=== PATIENT | male | born 1995 | race Caucasian/White ===

== ENCOUNTER 2021-09-02 15:09 | Inpatient (IN) | payer OTHER, SELFPAY ==
[2021-09-02 16:49] VITALS: BP 141/86; PULSE 97; RESP 14; TEMP 36.7; O2SAT 98
[2021-09-02 16:50] VITALS: BMI 23.3
[2021-09-02 17:23] VITALS: BP 137/84; PULSE 94; RESP 18; TEMP 37.1; O2SAT 99
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
[2021-09-02] MEDS: traZODone HCL 50 MG TABLET PO (21:31)
[2021-09-02] MEDS: LORazepam 1 MG TABLET PO (21:31)
[2021-09-03 06:00] VITALS: BP 126/81; PULSE 79; RESP 16; TEMP 36.5; O2SAT 98
[2021-09-03 07:00] VITALS: BMI 23.5
--- NOTE | 2021-09-03 08:57 | HO.PM.IMCN ---
History of Present Illness Data of Consult Service Date: 09/03/21 Primary Care Provider: Unknown Physician HPI Reason for consult: Routine MEdical H&P 26 yo M who reports no PMH. He is admitted to . Medical consult requested for routine medical H&P per protocol. Patient is seen and examined in the exam room. They deny any medical complaints at this time. He reoprts a FH of Gomez's (mother + grandmother). Reports he is in the process of being tested for the same. He denies any active neurological symptoms. PMH Denies PSH Denies FH Fowler's in mother + grandmother SH Denies tobacco or alcohol use; reports marijuana use Review of Systems Review of Systems: negative except HPI PMFSH Social History Household Members: Significant Other and Children Housing: Apartment Do you presently have visiting nurse or other home services: No Patient Tobacco Use Status: Former Tobacco user Quit Date: 08/24/21 Tobacco use type: Cigarette Years Smoked: 3 Smoked in Last 30 Days: Yes e-Cigarette/Vaping Use: Former Use Patient Interested in Nicotine Replacement: No Patient Given Instructions on How to Stop Smoking: Yes Date Education Initiated: 09/02/21 Second Hand Smoke Exposure: No Use of substances other than those prescribed or required for medical reasons: Yes Substance Use Type: Marijuana Substance Use Frequency: Chronic Longstanding Last Used Substance: Weeks (ago) Last Used Substance Other:: Marijuana Currently Displaying Signs/Symptoms of Drug Intoxication Withdrawal: No Any prior treatment program specific to substance use: No Have you been hit, kicked, punched, or otherwise hurt by someone within the past year? If so, by whom?: No Do you feel safe in your current relationship?: Yes Is there a partner from a previous relationship who is making you feel unsafe now?: No Are you made to feel afraid or neglected: No Advance Directives: No Advance Directives Information Provided: No Do you have thoughts of harming others: None Do you have a plan to hurt others: No Plan Recently lost weight without trying: No How much weight loss: Not applicable Eating poorly because of decreased appetite: No Nutrition screen score: 0 Nutrition Risks: No Nutritional Risk Poor oral hygiene: No Meds Allergies Allergy/AdvReac Type Severity Reaction Status Date / Time No Known Allergies Allergy Verified 09/02/21 15:17 Active Medications: Current Medications Acetaminophen (Acetaminophen 325 Mg Tablet) 650 mg PO Q6H PRN PRN Reason: Headache/Pain Mild Scale (1-3) Al Hydroxide/Mg Hydroxide (Magnesium Hydrox/Alum Hydrox 30 Ml Oral.Susp) 30 ml PO Q6H PRN PRN Reason: Heartburn/Nausea Hydroxyzine HCl (Hydroxyzine Hcl 25 Mg Tablet) 25 mg PO BEDTIME PRN PRN Reason: Anxiety Lorazepam (Lorazepam 1 Mg Tablet) 1 mg PO BID PRN PRN Reason: Anxiety Last Admin: 09/02/21 21:31 Dose: 1 mg Documented by: Magnesium Hydroxide (Milk Of Magnesia 30 Ml Oral.Susp) 30 ml PO DAILY PRN PRN Reason: Constipation Trazodone HCl (Trazodone Hcl 50 Mg Tablet) 50 mg PO BEDTIME PRN PRN Reason: Insomnia Last Admin: 09/02/21 21:31 Dose: 50 mg Documented by: Home Medications Medication Instructions Recorded Confirmed Last Taken Type lorazepam 1 mg PO BID PRN 09/02/21 09/02/21 09/01/21 20:20 History Physical Exam Vital Signs and Narrative: Vital Signs: Last Vital Signs Temp 97.7 F 09/03/21 06:00 Pulse 79 09/03/21 06:00 Resp 16 09/03/21 06:00 BP 126/81 09/03/21 06:00 Pulse Ox 98 09/03/21 06:00 BMI result Body Mass Index 23.3 Const: Other: General - no acute distress, appears comfortable Cardiovascular - regular rate and rhythm, S1-S2 Lungs - normal respiratory effort, clear to auscultation bilaterally, no wheezing Abdomen - soft, nontender, no rebound or guarding Extremities - no edema bilaterally Neuro - awake and alert, no focal deficits; cn 2-12 intact bilaterally Assessment and Plan (1) Routine medical exam: Status: Acute Plan 26 yo M with no PMH, admitted to . Medical consultation sought for routine medical H&P. Patient has no active nor chronic medical issues. Patient has been counseled on age appropriate health maintenance as an outpatient. Continue care per primary team. Will sign off. Please re-consult if any issues arise.
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
[2021-09-03 20:57] VITALS: BP 137/91; PULSE 70; RESP 18; TEMP 36.9; O2SAT 100
[2021-09-03] MEDS: traZODone HCL 50 MG TABLET PO (21:00)
[2021-09-03] MEDS: cloNIDine HCL 0.1 MG TABLET PO (21:00)
[2021-09-04 06:35] VITALS: BP 119/68; PULSE 60; RESP 15; TEMP 36.1; O2SAT 100
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
[2021-09-04 17:46] VITALS: BP 135/83; PULSE 70; RESP 18; TEMP 36.6; O2SAT 98
[2021-09-04] MEDS: traZODone HCL 50 MG TABLET PO ×2 (21:36→23:08)
[2021-09-05 06:00] VITALS: BP 127/74; PULSE 70; TEMP 36.7; O2SAT 99
[2021-09-05 18:00] VITALS: BP 147/85; PULSE 78; RESP 20; TEMP 36.9; O2SAT 98
[2021-09-05] MEDS: hydrOXYzine HCL 25 MG TABLET PO (21:20)
[2021-09-05] MEDS: traZODone HCL 50 MG TABLET PO (21:21)
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
[2021-09-06 08:30] VITALS: BP 134/79; PULSE 82; TEMP 36.7
--- NOTE | 2021-09-06 19:15 | HO.PSYCHPN ---
Subjective Subjective Date of Service: 09/06/21 Reason For Visit: Acute psychosis Subjective Notes: Alberto Warning and Conditional Voluntary Healthcare Proxy: No Guardianship: No Medical Problems Affecting Mental Status: No Interim History: Patient seen and discussed with team. Per staff services manager, pt is brighter. Patient evaluated today and upon interview he reports his mood is really good. Talks about cars, his children. Says he is doing good. Sleep is ?good.? Re-trialed clonidine last night and he did not have SE of nausea. No quesitons or concerns. Does not want scheduled medication. In the milieu, patient is safe and appropriate in behavior. Denies SI/SIB/HI upon inquiry. Denies irritability or assaultive ideation. Says he feels safe. Medication Compliance: Yes Side effects from medications: No Attending Groups: Yes Review of Systems Acute medical concerns: No Medical Review of Systems: unchanged Mental Status Exam Mental Status Exam Narrative: Pt is alert and oriented; behavior is cooperative and calm; patient is not in distress; dressed in casual attire with adequate hygiene; mood is described as really good and affect congruent; eye contact appropriate; Speech is normal rate, volume and prosody and not pressured; no psychomotor agitation/retardation present; thought process is organized and goal directed; Thought content is on tx; otherwise pertinent to relevant topics and without any delusional content, paranoid ideations or grandiosity; denies any SI/HI. There is no evidence of perceptual disturbance. ?Patients insight and judgment appear intact. Diagnostics Vital Signs (24Hr): Vital Signs - 24 hr 09/06/21 08:30 09/06/21 22:00 Temperature 98.1 F 98.2 F Pulse Rate 82 79 Blood Pressure 134/79 158/99 H BMI result Body Mass Index 23.5 Medications Medications Current Medications Acetaminophen (Acetaminophen 325 Mg Tablet) 650 mg PO Q6H PRN PRN Reason: Headache/Pain Mild Scale (1-3) Al Hydroxide/Mg Hydroxide (Magnesium Hydrox/Alum Hydrox 30 Ml Oral.Susp) 30 ml PO Q6H PRN PRN Reason: Heartburn/Nausea Clonidine HCl (Clonidine Hcl 0.1 Mg Tablet) 0.1 mg PO Q4H PRN; Protocol PRN Reason: anxiety Last Admin: 09/03/21 21:00 Dose: 0.1 mg Documented by: Hydroxyzine HCl (Hydroxyzine Hcl 25 Mg Tablet) 25 mg PO BEDTIME PRN PRN Reason: Anxiety Last Admin: 09/06/21 21:59 Dose: 25 mg Documented by: Magnesium Hydroxide (Milk Of Magnesia 30 Ml Oral.Susp) 30 ml PO DAILY PRN PRN Reason: Constipation Trazodone HCl (Trazodone Hcl 50 Mg Tablet) 50 mg PO BEDTIME PRN PRN Reason: Insomnia Last Admin: 09/06/21 21:59 Dose: 50 mg Documented by: Allergies Allergies Allergy/AdvReac Type Severity Reaction Status Date / Time No Known Allergies Allergy Verified 09/02/21 15:17 Assessment & Plan Assessment & Plan (1) MDD (major depressive disorder), recurrent episode, moderate: Status: Acute Code(s): F33.1 - Major depressive disorder, recurrent, moderate (2) Chronic post-traumatic stress disorder (PTSD): Status: Acute Code(s): F43.12 - Post-traumatic stress disorder, chronic (3) Cannabis abuse: Status: Acute Code(s): F12.10 - Cannabis abuse, uncomplicated Plan Patient is a 26-year-old male with history of PTSD, depression and anxiety, also with her ready to her risk for [place]'s disease, who presents for is overwhelming anxiety and suicidal gesture in face of multiple psychosocial stressors, including the recent anniversary of his beloved mother's . Admitted for stabilization and medication management -patient reports that his superficial self-harm was more an expression of frustration and anger and not a suicide attempt. He says that this incident and he is now feeling calm and stable. He denies any current SI though does say that the past month and life stressors do bring up passive SI; however he says he does not want to and will not leave his child and family without him -history of severe childhood trauma and continued chronic struggles with high expressed emotion -patient not on medications but is open to considering; he agrees that cannabis is problematic and wants to cut down -Luckily patient reports he has good relationship with girlfriend -rule out bipolar disorder; borderline traits present. Plan: CV Q 15 minute checks Will start on clonidine p.r.n. for anxiety and mild agitation Will start on trazodone p.r.n. for insomnia Patient does not remember past medication trials; will try to get this information and consider medications to address depression anxiety, PTSD I spent minutes with the patient and/or on the patient floor today, greater than?50% of which was spent counseling/coordinating care. Reason for contiued inpatient stay Substantial Risk for: med/psych decompensation
[2021-09-06] MEDS: hydrOXYzine HCL 25 MG TABLET PO (21:59)
[2021-09-06] MEDS: traZODone HCL 50 MG TABLET PO (21:59)
[2021-09-06 22:00] VITALS: BP 158/99; PULSE 79; TEMP 36.8
[2021-09-07 06:38] VITALS: BP 121/76; PULSE 67; RESP 16; TEMP 36.3; O2SAT 98
[2021-09-07] MEDS: cloNIDine HCL 0.1 MG TABLET PO ×2 (08:11→15:02)
[2021-09-07] MEDS: hydrOXYzine HCL 25 MG TABLET PO (15:02)
--- NOTE | 2021-09-07 17:13 | P.PNPSI_ITS ---
Subjective Subjective Date of Service: 09/07/21 Reason For Visit: Acute psychosis Subjective Notes: Alberto Warning and Conditional Voluntary Healthcare Proxy: No Guardianship: No Medical Problems Affecting Mental Status: No Interim History: Patient seen and discussed with team. Pt punched the shower wall today. Patient evaluated today and upon interview he reports he feels depressed, had an argument with his daughter's mom, who he was living with. Pt says she lied to him, Im gonna end up killing myself and says she takes away all my liu in everything. Hx of codependency, says they were together 08/11 for 3 years.?Pt reports he has difficulty focusing, always thought I had ADHD, endorses impulsive bx, forgetfulness, says he wants to do everything at once, always fidgeting.?Pt says he wants a medication to help with impulsivity, depression, and anger. Says when he is angry, he feels like if I was the hulk, I would have destroyed this whole universe, feels trapped in myself. ? Pt currently denies SI/SIB/HI upon inquiry. Denies irritability or assaultive ideation. Says he feels safe on the unit. Attending Groups: Yes Review of Systems Acute medical concerns: No Medical Review of Systems: unchanged Mental Status Exam Mental Status Exam Narrative: Pt is alert and oriented; behavior is cooperative and calm; patient is not in distress; dressed in casual attire with adequate hygiene; mood is described as depressed and affect is irritable; eye contact appropriate; Speech is normal rate, volume and prosody and not pressured; no psychomotor agitation/retardation present; thought process is organized and goal directed; Thought content is ruminative on argument with his gf; otherwise pertinent to relevant topics and without any delusional content, paranoid ideations or grandiosity; denies any SI/HI. There is no evidence of perceptual disturbance. ?Patients insight and judgment appear intact. Diagnostics Vital Signs (24Hr): Vital Signs - 24 hr 09/06/21 22:00 09/07/21 06:38 Temperature 98.2 F 97.4 F Pulse Rate 79 67 Respiratory Rate 16 Blood Pressure 158/99 H 121/76 Pulse Oximetry 98 BMI result Body Mass Index 23.5 Medications Medications Current Medications Acetaminophen (Acetaminophen 325 Mg Tablet) 650 mg PO Q6H PRN PRN Reason: Headache/Pain Mild Scale (1-3) Al Hydroxide/Mg Hydroxide (Magnesium Hydrox/Alum Hydrox 30 Ml Oral.Susp) 30 ml PO Q6H PRN PRN Reason: Heartburn/Nausea Clonidine HCl (Clonidine Hcl 0.1 Mg Tablet) 0.1 mg PO Q4H PRN; Protocol PRN Reason: anxiety Last Admin: 09/07/21 15:02 Dose: 0.1 mg Documented by: Hydroxyzine HCl (Hydroxyzine Hcl 25 Mg Tablet) 25 mg PO BEDTIME PRN PRN Reason: Anxiety Last Admin: 09/07/21 15:02 Dose: 25 mg Documented by: Magnesium Hydroxide (Milk Of Magnesia 30 Ml Oral.Susp) 30 ml PO DAILY PRN PRN Reason: Constipation Nicotine Polacrilex (Nicotine Polacrilex 2 Mg Gum) 4 mg BUCCAL Q2H ESTELA Trazodone HCl (Trazodone Hcl 50 Mg Tablet) 50 mg PO BEDTIME PRN PRN Reason: Insomnia Last Admin: 09/06/21 21:59 Dose: 50 mg Documented by: Allergies Allergies Allergy/AdvReac Type Severity Reaction Status Date / Time No Known Allergies Allergy Verified 09/02/21 15:17 Assessment & Plan Assessment & Plan (1) MDD (major depressive disorder), recurrent episode, moderate: Status: Acute Code(s): F33.1 - Major depressive disorder, recurrent, moderate (2) Chronic post-traumatic stress disorder (PTSD): Status: Acute Code(s): F43.12 - Post-traumatic stress disorder, chronic (3) Cannabis abuse: Status: Acute Code(s): F12.10 - Cannabis abuse, uncomplicated Plan Patient is a 26-year-old male with history of PTSD, depression and anxiety, also with her ready to her risk for [place]'s disease, who presents for is overwhelming anxiety and suicidal gesture in face of multiple psychosocial stressors, including the recent anniversary of his beloved mother's . Admitted for stabilization and medication management -patient reports that his superficial self-harm was more an expression of frustration and anger and not a suicide attempt. He says that this incident and he is now feeling calm and stable. He denies any current SI though does say that the past month and life stressors do bring up passive SI; however he says he does not want to and will not leave his child and family without him -history of severe childhood trauma and continued chronic struggles with high expressed emotion -patient not on medications but is open to considering; he agrees that cannabis is problematic and wants to cut down -rule out bipolar disorder; borderline traits present. Plan: CV Q 15 minute checks Will start on clonidine p.r.n. for anxiety and mild agitation Will start on trazodone p.r.n. for insomnia Patient does not remember past medication trials; will try to get this information and consider medications to address depression anxiety, PTSD Will start wellbutrin XL 150 mg QAM for depression, as this may also help with impulsive bx. Will start seroquel 50 mg QHS for mood lability. I spent minutes with the patient and/or on the patient floor today, greater than?50% of which was spent counseling/coordinating care. Patient educated on: medication risk/benefits Reason for contiued inpatient stay Substantial Risk for: med/psych decompensation
[2021-09-07] MEDS: Nicotine Polacrilex 2 MG GUM 4 MG BUCCAL (17:47)
[2021-09-07 18:00] VITALS: BP 136/82; PULSE 82; RESP 18; TEMP 36.4
[2021-09-07] MEDS: QUEtiapine Fumarate 50 MG TABLET PO (21:40)
[2021-09-07] MEDS: traZODone HCL 50 MG TABLET PO (23:50)
[2021-09-08 06:00] VITALS: BP 131/82; PULSE 76; RESP 18; TEMP 36.7; O2SAT 98
[2021-09-08] MEDS: buPROPion HCl XL 150 MG TAB.ER.24H PO (08:51)
[2021-09-08] MEDS: Nicotine Polacrilex 2 MG GUM 4 MG BUCCAL ×3 (10:34→19:24)
[2021-09-08] MEDS: cloNIDine HCL 0.1 MG TABLET PO ×2 (10:36→19:17)
--- NOTE | 2021-09-08 17:43 | HO.PSYCHPN ---
Subjective Subjective Date of Service: 09/08/21 Reason For Visit: Acute psychosis Subjective Notes: Alberto Warning and Conditional Voluntary Healthcare Proxy: No Guardianship: No Medical Problems Affecting Mental Status: No Interim History: Patient seen and discussed with team. Patient evaluated today and upon interview he says that a pt on the unit had a self harm gesture and this was triggering for him. He is also arguing with his daughter's mom, against punched the wall and door, denies pain, declined xray. Pt is worried his daughter's mom wont let him return home and says If she?s not letting me go back she?s fucking with someone else, that?s how I look at it. Pt asked to talk to T/W later in the day after talking to his daughter's mom, who broke it to him that she did not want him to return home due to DCF involvment, per pt I knew it was gonna happen. Says he didn?t feel anything on Seroquel 50 mg and asks for 200 mg. Says he feels safe. Medication Compliance: Yes Side effects from medications: No Attending Groups: Yes Review of Systems Acute medical concerns: No Medical Review of Systems: unchanged Mental Status Exam Mental Status Exam Narrative: Pt is alert and oriented; behavior is cooperative and calm; patient is not in distress; dressed in casual attire with adequate hygiene; mood is described as depressed and affect is irritable; eye contact appropriate; Speech is normal rate, volume and prosody and not pressured; no psychomotor agitation/retardation present; thought process is organized and goal directed; Thought content is ruminative on argument with his gf; otherwise pertinent to relevant topics and without any delusional content, paranoid ideations or grandiosity; denies any SI/HI. There is no evidence of perceptual disturbance. ?Patients insight and judgment appear intact. Diagnostics Vital Signs (24Hr): Vital Signs - 24 hr 09/08/21 06:00 09/08/21 19:10 Temperature 98.0 F 98.9 F Pulse Rate 76 92 Respiratory Rate 18 Blood Pressure 131/82 152/83 H Pulse Oximetry 98 98 BMI result Body Mass Index 23.5 Medications Medications Current Medications Acetaminophen (Acetaminophen 325 Mg Tablet) 650 mg PO Q6H PRN PRN Reason: Headache/Pain Mild Scale (1-3) Al Hydroxide/Mg Hydroxide (Magnesium Hydrox/Alum Hydrox 30 Ml Oral.Susp) 30 ml PO Q6H PRN PRN Reason: Heartburn/Nausea Bupropion HCl (Bupropion Hcl Xl 150 Mg Tab.Er.24h) 150 mg PO DAILY [facility] Last Admin: 09/08/21 08:51 Dose: 150 mg Documented by: Clonidine HCl (Clonidine Hcl 0.1 Mg Tablet) 0.1 mg PO Q4H PRN; Protocol PRN Reason: anxiety Last Admin: 09/08/21 19:17 Dose: 0.1 mg Documented by: Hydroxyzine HCl (Hydroxyzine Hcl 25 Mg Tablet) 25 mg PO BEDTIME PRN PRN Reason: Anxiety Last Admin: 09/07/21 15:02 Dose: 25 mg Documented by: Magnesium Hydroxide (Milk Of Magnesia 30 Ml Oral.Susp) 30 ml PO DAILY PRN PRN Reason: Constipation Nicotine Polacrilex (Nicotine Polacrilex 2 Mg Gum) 4 mg BUCCAL Q2H PRN PRN Reason: Nicotine Cravings Last Admin: 09/08/21 19:24 Dose: 4 mg Documented by: Quetiapine Fumarate (Quetiapine Fumarate 200 Mg Tablet) 200 mg PO BEDTIME ESTELA Last Admin: 09/08/21 21:42 Dose: 200 mg Documented by: Quetiapine Fumarate (Quetiapine Fumarate 50 Mg Tablet) 50 mg PO Q6H PRN PRN Reason: anxiety, agitation Last Admin: 09/08/21 19:35 Dose: 50 mg Documented by: Trazodone HCl (Trazodone Hcl 50 Mg Tablet) 50 mg PO BEDTIME PRN PRN Reason: Insomnia Last Admin: 09/07/21 23:50 Dose: 50 mg Documented by: Allergies Allergies Allergy/AdvReac Type Severity Reaction Status Date / Time No Known Allergies Allergy Verified 09/02/21 15:17 Assessment & Plan Assessment & Plan (1) MDD (major depressive disorder), recurrent episode, moderate: Status: Acute Code(s): F33.1 - Major depressive disorder, recurrent, moderate (2) Chronic post-traumatic stress disorder (PTSD): Status: Acute Code(s): F43.12 - Post-traumatic stress disorder, chronic (3) Cannabis abuse: Status: Acute Code(s): F12.10 - Cannabis abuse, uncomplicated Plan Patient is a 26-year-old male with history of PTSD, depression and anxiety, also with her ready to her risk for [place]'s disease, who presents for is overwhelming anxiety and suicidal gesture in face of multiple psychosocial stressors, including the recent anniversary of his beloved mother's . Admitted for stabilization and medication management -patient reports that his superficial self-harm was more an expression of frustration and anger and not a suicide attempt. He says that this incident and he is now feeling calm and stable. He denies any current SI though does say that the past month and life stressors do bring up passive SI; however he says he does not want to and will not leave his child and family without him -history of severe childhood trauma and continued chronic struggles with high expressed emotion -patient not on medications but is open to considering; he agrees that cannabis is problematic and wants to cut down -Luckily patient reports he has good relationship with girlfriend -rule out bipolar disorder; borderline traits present. Plan: CV Q 15 minute checks Will start on clonidine p.r.n. for anxiety and mild agitation Will start on trazodone p.r.n. for insomnia Patient does not remember past medication trials; will try to get this information and consider medications to address depression anxiety, PTSD Will start wellbutrin XL 150 mg QAM for depression, as this may also help with impulsive bx. Will start seroquel 50 mg QHS for mood lability. Will increase seroquel to 200 mg QHS for mood lability and seroquel 50 mg Q6H PRN for agitation. I spent minutes with the patient and/or on the patient floor today, greater than?50% of which was spent counseling/coordinating care. Patient educated on: medication risk/benefits Reason for contiued inpatient stay Substantial Risk for: med/psych decompensation
[2021-09-08 19:10] VITALS: BP 152/83; PULSE 92; TEMP 37.2; O2SAT 98
[2021-09-08] MEDS: QUEtiapine Fumarate 50 MG TABLET PO (19:35)
[2021-09-08] MEDS: QUEtiapine Fumarate 200 MG TABLET PO (21:42)
--- NOTE | 2021-09-08 23:13 | PC.NURSE ---
Patient on a lengthy phone call with the mother of his child. Patient was loud and angry as he was speaking into the phone. Patient had said earlier that he thought the woman would not bring his daughter for a visit and that he was upset about the information.
[2021-09-09 06:00] VITALS: BP 128/78; PULSE 82; RESP 18; TEMP 36.6; O2SAT 99
[2021-09-09] MEDS: buPROPion HCl XL 150 MG TAB.ER.24H PO (08:22)
[2021-09-09] MEDS: cloNIDine HCL 0.1 MG TABLET PO (14:19)
[2021-09-09] MEDS: Nicotine Polacrilex 2 MG GUM 4 MG BUCCAL ×2 (14:19→21:03)
--- NOTE | 2021-09-09 17:12 | HO.PSYCHPN ---
Subjective Subjective Date of Service: 09/09/21 Reason For Visit: Acute psychosis Interim History: Patient said that he is feeling much better. Mood is good and denies any SI. He says on medications he is feeling more stable, more calm; denies any med side-effects. He said if medication keeps him out of [place] and rolling in the , so be it. He will work for [employer]. Patient said he had a good visit with his girlfriend and daughter. He said they have reconcile their differences and seems she would like him to come back to the house. Patient says he is eating and sleeping well and would like to discharge if possible but is amenable to staying if need be. Staff reports that last evening and overnight patient demonstrated good behavioral and impulse control. Mental Status Exam Mental Status Exam Narrative: Pt is alert and oriented; behavior is cooperative and calm; patient is not in distress; dressed in casual attire with adequate hygiene; mood is described as good and affect is congruent, brighter, calm; eye contact appropriate; Speech is normal rate, volume and prosody and not pressured; no psychomotor agitation/retardation present; thought process is organized and goal directed; Thought content is on staying stable post discharge; otherwise pertinent to relevant topics and without any delusional content, paranoid ideations or grandiosity; denies any SI/HI. There is no evidence of perceptual disturbance. ?Patients insight and judgment appear intact. Diagnostics Vital Signs (24Hr): Vital Signs - 24 hr 09/08/21 19:10 09/09/21 06:00 Temperature 98.9 F 97.9 F Pulse Rate 92 82 Respiratory Rate 18 Blood Pressure 152/83 H 128/78 Pulse Oximetry 98 99 BMI result Body Mass Index 23.5 Medications Medications Current Medications Acetaminophen (Acetaminophen 325 Mg Tablet) 650 mg PO Q6H PRN PRN Reason: Headache/Pain Mild Scale (1-3) Al Hydroxide/Mg Hydroxide (Magnesium Hydrox/Alum Hydrox 30 Ml Oral.Susp) 30 ml PO Q6H PRN PRN Reason: Heartburn/Nausea Bupropion HCl (Bupropion Hcl Xl 150 Mg Tab.Er.24h) 150 mg PO DAILY ESTELA Last Admin: 09/09/21 08:22 Dose: 150 mg Documented by: Clonidine HCl (Clonidine Hcl 0.1 Mg Tablet) 0.1 mg PO Q4H PRN; Protocol PRN Reason: anxiety Last Admin: 09/09/21 14:19 Dose: 0.1 mg Documented by: Hydroxyzine HCl (Hydroxyzine Hcl 25 Mg Tablet) 25 mg PO BEDTIME PRN PRN Reason: Anxiety Last Admin: 09/07/21 15:02 Dose: 25 mg Documented by: Magnesium Hydroxide (Milk Of Magnesia 30 Ml Oral.Susp) 30 ml PO DAILY PRN PRN Reason: Constipation Nicotine Polacrilex (Nicotine Polacrilex 2 Mg Gum) 4 mg BUCCAL Q2H PRN PRN Reason: Nicotine Cravings Last Admin: 09/09/21 14:19 Dose: 4 mg Documented by: Quetiapine Fumarate (Quetiapine Fumarate 200 Mg Tablet) 200 mg PO BEDTIME ESTELA Last Admin: 09/08/21 21:42 Dose: 200 mg Documented by: Quetiapine Fumarate (Quetiapine Fumarate 50 Mg Tablet) 50 mg PO Q6H PRN PRN Reason: anxiety, agitation Last Admin: 09/08/21 19:35 Dose: 50 mg Documented by: Trazodone HCl (Trazodone Hcl 50 Mg Tablet) 50 mg PO BEDTIME PRN PRN Reason: Insomnia Last Admin: 09/07/21 23:50 Dose: 50 mg Documented by: Allergies Allergies Allergy/AdvReac Type Severity Reaction Status Date / Time No Known Allergies Allergy Verified 09/02/21 15:17 Assessment & Plan Assessment & Plan (1) MDD (major depressive disorder), recurrent episode, moderate: Status: Acute Code(s): F33.1 - Major depressive disorder, recurrent, moderate (2) Chronic post-traumatic stress disorder (PTSD): Status: Acute Code(s): F43.12 - Post-traumatic stress disorder, chronic (3) Cannabis abuse: Status: Acute Code(s): F12.10 - Cannabis abuse, uncomplicated Plan Patient is a 26-year-old male with history of PTSD, depression and anxiety, also with her ready to her risk for [place]'s disease, who presents for is overwhelming anxiety and suicidal gesture in face of multiple psychosocial stressors, including the recent anniversary of his beloved mother's . Admitted for stabilization and medication management -patient reports that his superficial self-harm was more an expression of frustration and anger and not a suicide attempt. He says that this incident and he is now feeling calm and stable. He denies any current SI though does say that the past month and life stressors do bring up passive SI; however he says he does not want to and will not leave his child and family without him -history of severe childhood trauma and continued chronic struggles with high expressed emotion -patient not on medications but is open to considering; he agrees that cannabis is problematic and wants to cut down -Luckily patient reports he has good relationship with girlfriend 09/09 Patient reports mood is good, no SI and that medications are helpful, feeling more stable and calm. He is looking for to discharging and says he and his girlfriend have reconciled and she would like him to move back. He however is amenable to following whenever DCF recs there are. Plan: CV Q 15 minute checks wellbutrin clonidine p.r.n. for anxiety and mild agitation trazodone p.r.n. for insomnia Patient does not remember past medication trials; will try to get this information and consider medications to address depression anxiety, PTSD I spent minutes with the patient and/or on the patient floor today, greater than?50% of which was spent counseling/coordinating care. Patient educated on: medication risk/benefits and therapeutic strategies Informed Consent: understands Reason for contiued inpatient stay Substantial Risk for: stable for discharge
[2021-09-09] MEDS: QUEtiapine Fumarate 200 MG TABLET PO (20:59)
[2021-09-09] MEDS: traZODone HCL 50 MG TABLET PO (20:59)
[2021-09-09 21:45] VITALS: BP 149/85; PULSE 79; TEMP 36.7; O2SAT 99
[2021-09-10 08:15] VITALS: BP 143/89; PULSE 84; RESP 16; O2SAT 97
[2021-09-10] MEDS: buPROPion HCl XL 150 MG TAB.ER.24H PO (08:27)
[2021-09-10] MEDS: cloNIDine HCL 0.1 MG TABLET PO (08:27)
[2021-09-10] MEDS: Ondansetron ODT 4 MG TAB.RAPDIS TRANSLINGU (12:57)
[2021-09-10] MEDS: Nicotine Polacrilex 2 MG GUM 4 MG BUCCAL ×2 (13:13→19:31)
[2021-09-10 18:00] VITALS: BP 129/81; PULSE 71; TEMP 36.9; O2SAT 98
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
[2021-09-10] MEDS: traZODone HCL 50 MG TABLET PO (21:31)
[2021-09-10] MEDS: QUEtiapine Fumarate 100 MG TABLET PO (21:32)
[2021-09-11 06:00] VITALS: BP 130/71; PULSE 72; RESP 14; TEMP 36.6; O2SAT 98
[2021-09-11] MEDS: buPROPion HCl XL 150 MG TAB.ER.24H PO (08:43)
[2021-09-11] MEDS: Nicotine Polacrilex 2 MG GUM 4 MG BUCCAL ×2 (13:38→17:43)
[2021-09-11] MEDS: cloNIDine HCL 0.1 MG TABLET PO (15:08)
[2021-09-11 15:09] VITALS: BP 151/92; PULSE 94
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
== END 2021-09-11 18:05 | disposition home or self-care (01) | DRG 751 ==
PROVIDERS: Admitting Provider Psychiatry & Neurology Psychiatry; Visit Provider Psychiatry & Neurology Psychiatry
DX: F33.1 Major depressive disorder, recurrent, moderate (principal); R45.851 Suicidal ideations; F12.10 Cannabis abuse, uncomplicated; F43.12 Post-traumatic stress disorder, chronic; Z87.891 Personal history of nicotine dependence; Z79.899 Other long term (current) drug therapy